=== PATIENT | female | born 1960 | race Caucasian/White ===

== ENCOUNTER 2023-05-31 09:47 | Outpatient (CLI) | payer OTHER, SELFPAY ==
--- NOTE | ~2023-05-31 | MM_ITS ---
EXAMINATION: MM screening pauly BI w gary HISTORY: Screening TECHNIQUE: Craniocaudal and mediolateral oblique 3-D tomosynthesis images were obtained and synthetic 2-D images were generated. CAD analysis was submitted and interpreted. COMPARISON: No prior mammogram is available for comparison at this institution. BREAST PARENCHYMAL COMPOSITION: There are scattered areas of fibroglandular density. FINDINGS: There are bilateral breast asymmetries in the upper central/periareolar locations of both b reasts. No discrete mass or suspicious clustered calcifications are identified. IMPRESSION: 1. Bilateral breast asymmetries. 2. Additional spot compression and mediolateral views with possible follow-up breast ultrasound recom mended. BI-RADS Category 0: Incomplete: Needs additional imaging evaluation. Reviewed, dictated and finalized at location A. NT STORAGE WORKER IMPRESSION: 1. Bilateral breast asymmetries. 2. Additional spot compression and mediolateral views with possible follow-up b reast ultrasound recommended. BI-RADS Category 0: Incomplete: Needs additional imaging evaluation.
--- NOTE | ~2023-05-31 | DEXA_ITS ---
Bone Density Report Name: DUANE HEMPHILL Age: 62 Sex: Female Ethnicity: White Date of : 1960 Indication: postmenopausal; screening for osteoporosis; parental hip fracture; Referring Provider: MELONIE MURPHY Study: Bone densitometry was performed. Exam Date: May 31, 2023 Accession number: [id number] Bone Density: Region BMD T-score Z-score Classification AP Spine(L1-L4) 0.895 -1.4 0.1 Osteopenia Femoral Neck (Left) 0.765 -0.8 0.6 Normal Total Hip (Left) 0.861 -0.7 0.3 Normal Femoral Neck (Right) 0.728 -1.1 0.2 Osteopenia Total Hip (Right) 0.853 -0.7 0.3 Normal Total Hip Mean 0.857 -0.7 0.3 Normal World Health Organization criteria for BMD impression classify patients as: Normal (T-score at or above -1.0), Osteopenia (T-score between -1.0 and -2.5), or Osteoporosis (T-score at or below -2.5). 10-year Fracture Risk(1): Major Osteoporotic Fracture 15% Hip Fracture 0.5% Reported Risk Factors: [place] (), Neck BMD=0.728, BMI=27.4, parental fracture (1) FRAX(R) Version 3.08. Fracture probability calculated for an untreated patient. Fracture probability may be lower if the patient has received treatment. Clinical Information Provided by Patient: Parent has had a hip fracture Has used the following medications: Vitamin D, Calcium Patient maximum height was 66 Menopause Age: 46 No regular weight bearing exercise Drinks caffeinated beverages Onset of menses at age 15 Number of children 0 Impression: The patient has low bone mass, based on the Total Spine T-score. The patient has an estimated ten-year risk of hip fracture of 0.5% and an estimated ten-year risk of major fracture of 15%, based on the WHO FRAX algorithm. The patient has risk factors, including: parental hip fracture. Discussion: BONE DENSITY IS LOW AT ONE OR MORE SKELETAL SITES. This patient's lowest T-score is low at one or more skeletal sites. It meets the World Health Organization's (WHO) criteria for ?low bone mass? (T-score between -1.0 and -2.5). The patient's 10-year risk of fracture as calculated by FRAX is less than the threshold where pharmacological therapy is recommended by the National Osteoporosis Foundation (NOF). However, all treatment decisions require clinical judgment and consideration of individual patient factors, including patient preferences, comorbidities, previous drug use, risk factors not captured in the FRAX model (e.g., frailty, falls, vitamin D deficiency, increased bone turnover, interval significant decline in bone density) and possible under or overestimation of fracture risk by FRAX. The patient should follow a healthful lifestyle (good nutrition with adequate calcium and vitamin D, and appropriate weight-bearing exercise). Follow-Up: Consider repeating this study in 2
== END 2023-05-31 09:48 | disposition home or self-care (01) ==
LOC: ANHIMG 09:51
PROVIDERS: PCP Nurse Practitioner Family; Visit Provider Nurse Practitioner Family
DX: Z12.31 Encounter for screening mammogram for malignant neoplasm of breast (principal); Z78.0 Asymptomatic menopausal state; M85.89 Other specified disorders of bone density and structure, multiple sites; R92.8 Other abnormal and inconclusive findings on diagnostic imaging of breast
CPT/HCPCS: 77063; 77067; 77080

== ENCOUNTER 2023-06-26 12:48 | Outpatient (CLI) | payer OTHER, SELFPAY ==
--- NOTE | ~2023-06-26 | MMUS_ITS ---
EXAMINATION: MM diagnostic pauly BI w gary, US breast BI limited HISTORY: Follow-up bilateral periareolar asymmetries TECHNIQUE: Additional 3-D tomosynthesis images of the breasts were performed and synthetic 2-D images were generated. CAD analysis was submitted and interpreted. High resolution limited bilateral breast ultrasound was performed. COMPARISON: 05/31/2023 BREAST PARENCHYMAL COMPOSITION: Breast composed of scattered areas of fibroglandular density FINDINGS: MAMMOGRAPHIC FINDINGS: There are no suspicious masses, calcifications or architectural distortion in either breast to sugges t malignancy. ULTRASOUND: Limited right breast ultrasound: In the periareolar location of the right breast there is a small 3 m m anechoic structure with posterior shadowing. No internal vascularity. Limited left breast ultrasound: Normal heterogeneous echotexture in the periareolar lobe dictation of the left breast. IMPRESSION: 1. Probable benign 3 mm mass of the right breast in the periareolar location. 2. Recommend 6 month follow-up diagnostic right mammogram and Limited right breast ultrasound. BI-RADS category 3, probably benign findings. Reviewed, dictated and finalized at location A. ATIC COACH IMPRESSION: 1. Probable benign 3 mm mass of the right breast in the periareolar location. 2. Recommend 6 month follow-up diagnostic right mammogram and Limited right monique ast ultrasound. BI-RADS category 3, probably benign findings.
== END 2023-06-26 12:49 | disposition home or self-care (01) ==
LOC: ANHIMG 12:52
PROVIDERS: PCP Nurse Practitioner Family; Visit Provider Nurse Practitioner Family
DX: R92.8 Other abnormal and inconclusive findings on diagnostic imaging of breast (principal)
CPT/HCPCS: 76642; 77062; 77066; G0279

== ENCOUNTER 2023-12-05 08:46 | Day surgery (SDC) | payer OTHER, SELFPAY ==
[2023-11-18 10:04] VITALS: BMI 28.5
--- NOTE | 2023-12-05 07:23 | WPDANESEPPF ---
Anes - Initial Pre Proc Eval Procedure: Operation Date: 12/05/23 11:00 Proposed Procedures p Screening Colonoscopy - Mitchel Malave MD Date/Time: 12/05/23 07:23 Surgeon: Mitchel Malave MD Pre Op Diagnosis: Neoplasm screening Patient Data Age: 63 Gender: F Height: 1.68 m Weight: 77.4 kg Allergies Allergy/AdvReac Type Severity Reaction Status Date / Time sulfamethoxazole AdvReac Mild Rash Verified 12/05/23 09:28 [From ] trimethoprim [From ] AdvReac Mild Rash Verified 12/05/23 09:28 Home Medications Medication Instructions Recorded Confirmed Type calcium carbonate (Calcium 500) 500 mg PO DAILY 12/13/22 12/05/23 History cholecalciferol (vitamin D3) 125 125 mcg PO DAILY 12/13/22 12/05/23 History mcg (5,000 unit) capsule levothyroxine 100 mcg capsule 100 mcg PO DAILY #90 caps 12/14/22 12/05/23 Rx rimegepant 75 mg disintegrating 75 mg PO DAILY PRN migraine 12/14/22 12/05/23 Rx tablet (Nurtec ODT) headache #12 tabs topiramate 100 mg tablet 200 mg PO QHS #180 tabs 12/14/22 12/05/23 Rx fluticasone propionate 50 1 spray intranasal Q12H #16 grams 06/14/23 12/05/23 Rx mcg/actuation nasal spray,suspension (Flonase Allergy Relief) lidocaine 5 % topical patch 1 patch topical DAILY #30 ea 06/14/23 12/05/23 Rx cyclobenzaprine 10 mg tablet 5 - 10 mg PO TID PRN muscle spasm 09/09/23 12/05/23 Rx #60 tabs amitriptyline 50 mg tablet 50 mg PO QHS #90 tabs 10/23/23 11/26/23 Rx atorvastatin 20 mg tablet 20 mg PO DAILY #90 tabs 11/14/23 12/05/23 Rx trazodone 50 mg tablet 50 mg PO QHS #90 tabs 11/14/23 12/05/23 Rx Patient hx anesthesia problems: none Family hx anesthesia problems: none Results Review: All pre-operative results and documents have been reviewed as part of the pre-operative evaluation. [facility] Past Medical History Medical History (Updated 12/05/23 @ 07:23 by Lc Rossi DO) Abnormal mammogram Encounter to establish care Family hx of colon cancer GERD (gastroesophageal reflux disease) Hyperlipidemia Hypothyroid Insomnia Low back pain Migraine Osteopenia Paratubal cyst Screening for breast cancer Screening for colon cancer Seasonal allergies Serum calcium elevated Surgical History Surgical History H/O LEEP (~1994) H/O tubal ligation (~2002) History of gynecological procedure (~09/12/05) lap right paratubal cystectomy / peritoneal lesion biopsy/ Novasure Ablation Hx of tonsillectomy Family History Family History Father Colon cancer Other Diabetes mellitus Cerebrovascular accident Colon cancer Breast cancer Aunt Other Diabetes mellitus Grandparent Diabetes mellitus Heart disease Thyroid disease Colon cancer Mother Diabetes mellitus Other Carcinoma of colon Social History Social History Smoking status: Never smoker Second hand tobacco smoke exposure: Yes (spouse) Alcohol intake: current Alcohol use details: rarely Substance use: never Substance use type: does not use Do You Feel Safe in your Home?: Yes Lack of Transportation: No Lack of Food: Never True Current Housing: I Have Housing Concerned About Future Housing: No Difficulty Paying Gas/Electric Bills: No Difficulty Paying for Meds: No Currently Unemployed: No Education: Trade/Vocational Certificate Difficulty w/ Childcare or Family Care: No Living arrangements: with family Additional living arrangements comments: but in relationship Occupation/Education: occupation 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
[2023-12-05 09:33] VITALS: BMI 27.6
[2023-12-05 09:36] VITALS: BP 134/90; PULSE 94; RESP 14; TEMP 37.4; O2SAT 98
[2023-12-05] MEDS: LACTATED RINGERS 1,000 ML 150 ML IV CONT (09:45)
--- NOTE | 2023-12-05 10:00 | PM.HPGS ---
History of Present Illness History of Present Illness Consent: Risks, benefits, and alternatives have been discussed and questions answered. Patient agrees to proceed with procedure. Chief complaint: Neoplasm screening Narrative: Luna Sandhu is a 63 year old female presents for screening colonoscopy. Patient's current weight appetite and bowel movements are normal. Patient is a abdominal pain. She has had no bleeding. Family history is significant father had colon cancer. Review of Systems Review of Systems: All systems reviewed & are unremarkable except as noted in HPI and below PMFSH Past Medical History Medical History (Updated 12/05/23 @ 07:23 by Lc Rossi DO) Abnormal mammogram Encounter to establish care Family hx of colon cancer GERD (gastroesophageal reflux disease) Hyperlipidemia Hypothyroid Insomnia Low back pain Migraine Osteopenia Paratubal cyst Screening for breast cancer Screening for colon cancer Seasonal allergies Serum calcium elevated Surgical History Surgical History H/O LEEP (~1994) H/O tubal ligation (~2002) History of gynecological procedure (~09/12/05) lap right paratubal cystectomy / peritoneal lesion biopsy/ Novasure Ablation Hx of tonsillectomy Family History Family History Father Colon cancer Other Diabetes mellitus Cerebrovascular accident Colon cancer Breast cancer Aunt Other Diabetes mellitus Grandparent Diabetes mellitus Heart disease Thyroid disease Colon cancer Mother Diabetes mellitus Other Carcinoma of colon Social History Social History Smoking status: Never smoker Second hand tobacco smoke exposure: Yes (spouse) Alcohol intake: current Alcohol use details: rarely Substance use: never Substance use type: does not use Do You Feel Safe in your Home?: Yes Lack of Transportation: No Lack of Food: Never True Current Housing: I Have Housing Concerned About Future Housing: No Difficulty Paying Gas/Electric Bills: No Difficulty Paying for Meds: No Currently Unemployed: No Education: Trade/Vocational Certificate Difficulty w/ Childcare or Family Care: No Living arrangements: with family Additional living arrangements comments: but in relationship Occupation/Education: occupation 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 Gender identity (if verbalized by the patient): Female Sexual Orientation (if Verbalized by the Patient): Straight or Heterosexual Spiritual care concerns: No Agree to blood products: Yes Meds Home Medications and Allergies Home Medications Medication Instructions Recorded Confirmed Type calcium carbonate (Calcium 500) 500 mg PO DAILY 12/13/22 12/05/23 History cholecalciferol (vitamin D3) 125 125 mcg PO DAILY 12/13/22 12/05/23 History mcg (5,000 unit) capsule levothyroxine 100 mcg capsule 100 mcg PO DAILY #90 caps 12/14/22 12/05/23 Rx rimegepant 75 mg disintegrating 75 mg PO DAILY PRN migraine 12/14/22 12/05/23 Rx tablet (Nurtec ODT) headache #12 tabs topiramate 100 mg tablet 200 mg PO QHS #180 tabs 12/14/22 12/05/23 Rx fluticasone propionate 50 1 spray intranasal Q12H #16 grams 06/14/23 12/05/23 Rx mcg/actuation nasal spray,suspension (Flonase Allergy Relief) lidocaine 5 % topical patch 1 patch topical DAILY #30 ea 06/14/23 12/05/23 Rx cyclobenzaprine 10 mg tablet 5 - 10 mg PO TID PRN muscle spasm 09/09/23 12/05/23 Rx #60 tabs amitriptyline 50 mg tablet 50 mg PO QHS #90 tabs 10/23/23 11/26/23 Rx atorvastatin 20 mg tablet 20 mg PO DAILY #90 tabs 11/14/23 12/05/23 Rx trazodone 50 mg tablet 50 mg PO QHS #90 tabs 11/14/23 12/05/23 Rx Allergies Allergy/AdvReac Type Severity Reaction Status Date / Time sulfamethoxazole AdvReac Mild Rash Verified 12/05/23
[2023-12-05 11:07] VITALS: BP 105/65; PULSE 82; RESP 18; O2SAT 100
[2023-12-05 11:17] VITALS: BP 106/66; PULSE 78; RESP 16; O2SAT 99
[2023-12-05 11:27] VITALS: BP 113/75; PULSE 76; RESP 16; O2SAT 100
--- NOTE | 2023-12-05 11:53 | WPDANESPN ---
Anes - Prog Note Post-Op Date/Time: 12/05/23 11:53 Cardiovascular status: normal Respiratory status: normal Airway patency: baseline Mental status: baseline Post-Op hydration status: normal Vital Signs: Last Vital Signs Temp 37.4 C 12/05/23 09:36 Pulse 76 12/05/23 11:27 Resp 16 12/05/23 11:27 BP 113/75 12/05/23 11:27 Pulse Ox 100 12/05/23 11:27 O2 Del Method Room Air 12/05/23 11:27 Pain Score (VAS): 0 I/O: Intake & Output 12/04/23 12/05/23 12/05/23 23:59 07:59 15:59 Intake Total 900 Balance 900 Post-procedural complaints: none Patient Feedback: Patient satisfied with anesthetic care. Other Findings: Patient vital signs back to baseline. Patient denies nausea and vomiting. Patient's pain under control. Patient OK for discharge.
== END 2023-12-05 11:38 | disposition home or self-care (01) ==
PROVIDERS: PCP Nurse Practitioner Family; Visit Provider Internal Medicine Gastroenterology
PROC: 0DJD8ZZ Inspection of Lower Intestinal Tract, Via Natural or Artificial Opening Endoscopic (ICD-10-PCS; CPT 45378; principal; 2023-12-05 11:00)
DX: Z80.0 Family history of malignant neoplasm of digestive organs (principal); K64.8 Other hemorrhoids
CPT/HCPCS: 45378

== ENCOUNTER 2023-12-26 10:25 | Outpatient (CLI) | payer OTHER, SELFPAY ==
--- NOTE | ~2023-12-26 | MMUS_ITS ---
EXAMINATION: MM diagnostic pauly RT w gary, US breast RT limited HISTORY: Follow-up right breast asymmetry TECHNIQUE: Additional 3-D tomosynthesis images of the right breast were performed and synthetic 2-D i mages were generated. CAD analysis was submitted and interpreted. High resolution Limited right breas t ultrasound was performed. COMPARISON: 06/26/2023 BREAST PARENCHYMAL COMPOSITION: Not dense: There are scattered areas of fibroglandular density. FINDINGS: MAMMOGRAPHIC FINDINGS: There are no suspicious masses, calcifications or architectural distortion in the right breast to sug gest malignancy. ULTRASOUND: Limited right breast ultrasound: Normal heterogeneous echotexture without focal solid or cystic mass. IMPRESSION: 1. No evidence for malignancy in the right breast. 2. Routine yearly screening mammogram and regular clinical breast examination are recommended. BI-RADS Category 1: Negative Reviewed, dictated and finalized at location B. IMPRESSION: 1. No evidence for malignancy in the right breast. 2. Routine yearly screening mammogram and regular clinical breast examination a re recommended. BI-RADS Category 1: Negative
== END 2023-12-26 10:26 | disposition home or self-care (01) ==
PROVIDERS: PCP Nurse Practitioner Family; Visit Provider Nurse Practitioner Family
DX: R92.8 Other abnormal and inconclusive findings on diagnostic imaging of breast (principal)
CPT/HCPCS: 76642; 77061; 77065; G0279

== ENCOUNTER 2025-01-07 07:23 | Outpatient (CLI) | payer OTHER, SELFPAY ==
--- NOTE | ~2025-01-07 | MM_ITS ---
EXAMINATION: MM screening pauly BI w gary HISTORY: Screening TECHNIQUE: Craniocaudal and mediolateral oblique 3-D tomosynthesis images were obtained and synthetic 2-D images were generated. CAD analysis was submitted and interpreted. COMPARISON: Comparison to multiple prior studies sequentially, with oldest reviewed study dated 05/11. BREAST PARENCHYMAL COMPOSITION: Not dense: There are scattered areas of fibroglandular density. FINDINGS: There is no evidence of suspicious mass, calcification, or architectural distortion to sugg est malignancy in either breast. There has been no suspicious interval change. IMPRESSION: 1. No mammographic evidence of malignancy. 2. Recommend routine screening mammography in one year. BI-RADS Category 1: Negative Reviewed, dictated and finalized at location B.
== END 2025-01-07 07:24 | disposition home or self-care (01) ==
LOC: ANHIMG 07:26
PROVIDERS: PCP Nurse Practitioner Family; Visit Provider Obstetrics & Gynecology
DX: Z12.31 Encounter for screening mammogram for malignant neoplasm of breast (principal)
CPT/HCPCS: 77063; 77067